=== PATIENT | male | born 1985 | race African-American/Black ===

== ENCOUNTER 2024-02-26 21:06 | Emergency (ER) | payer SELFPAY ==
[2024-02-26 21:11] VITALS: BP 142/88; PULSE 80; RESP 18; TEMP 36.3; O2SAT 100
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
--- NOTE | 2024-02-26 22:15 | CT_ITS ---
EXAM: CT Abdomen And Pelvis W/O Contrast Injection HISTORY: right flank/rib pain TECHNIQUE: Routine protocol CT abdomen and pelvis. IV Contrast: None.. Oral contrast: None. RADIATION DOSAGE (If Supplied By Facility): CTDIvol = ( 24.09 ) mGy, DLP = ( 1459.78 ) mGycm Individualized dose optimization techniques were used for this CT. COMPARISON: None. LIMITATIONS: Lack of IV contrast limits evaluation of solid organs. FINDINGS: LOWER CHEST: Included lung bases are clear. 4 mm nodule left lower lobe LIVER: Grossly unremarkable. GALLBLADDER AND BILIARY TREE: Grossly unremarkable. PANCREAS: Grossly unremarkable. SPLEEN: Grossly unremarkable. ADRENAL GLANDS: Grossly unremarkable. KIDNEYS AND URETERS: No calculi demonstrated. No hydronephrosis. PERITONEUM: No free air. No free fluid. BOWEL: No bowel obstruction. APPENDIX: Visualized and unremarkable. No evidence of acute appendicitis. VESSELS: Abdominal aorta is normal caliber. REPRODUCTIVE ORGANS: Grossly unremarkable URINARY BLADDER: Grossly unremarkable. ABDOMINAL WALL: Unremarkable. BONES: No fracture demonstrated. CT/Abdomen/Pelvis without Cont IMPRESSION: No acute findings on noncontrast CT. Incidental 4 mm pulmonary nodule left lower lobe. Follow-up recommended according to Fleischner Society guidelines: If low risk patient, no follow-up needed; if high-risk patient, i.e. smoking or other risk factors, optional CT chest at 12 months. *Fleischner Society Recommendations (Radiology 2017, [id number].) (Follow-up and management of solitary nodules smaller than 8 mm detected incidentally at non-screening CT. Newly detected indeterminate nodule in persons 35 years of age or older.) Low risk patient: Minimal or absent history of smoking and of other known risk factors. < 6 mm: No followup needed 6-8mm: Initial Follow-up CT at 6-12 months, then consider CT at 18-24 months >8mm: Consider CT at 3 months, FDG PET scan, or biopsy High risk patient: History of smoking or of other known risk factors. < 6 mm: Optional CT at 12 months. 6-8mm: CT at 6-12 months, then CT at 18-24 months. >8mm: Consider CT at 3 months, FDG PET scan, or biopsy Electronically Signed: Mattie Astorga MD at 23:22 EST ,
--- NOTE | 2024-02-26 22:15 | CT_ITS ---
INDICATION: injury EXAMINATION: CT BRAIN - CT Head or Brain W/O Contrast Injection TECHNIQUE: Multiple axial images were obtained of the head without intravenous contrast. The protocol utilizes one or more of the following dose reduction techniques: automated exposure control, adjustment of mA and/or kV according to patient size,and/or use of iterative reconstruction technique. IV Contrast dosage and agent: None. RADIATION DOSAGE (If Supplied By Facility): CTDIvol = ( 44.99 ) mGy, DLP = ( 866.41 ) mGycm COMPARISON: No relevant prior comparison study available FINDINGS: BRAIN: No acute bleed. No edema. Tiwari-white matter differentiation is maintained. VENTRICLES AND SULCI: Not dilated. EXTRA-AXIAL: No hemorrhage, fluid collection, or mass. CALVARIUM / SKULL BASE: Unremarkable. FACE/SINUSES: Unremarkable. SOFT TISSUES: Unremarkable. CT/Brain/Head without Contrast IMPRESSION: No acute abnormality. Electronically Signed: Mattie Astorga MD at 23:07 [facility] ,
[2024-02-26] MEDS: Acetaminophen 500 MG Tablet 1000 MG PO (22:52)
== END 2024-02-26 23:53 | disposition home or self-care (01) ==
LOC: ED 23:52
PROVIDERS: Emergency Provider Emergency Medicine; Visit Provider Emergency Medicine
DX: Z04.1 Encounter for examination and observation following transport accident (principal)
CPT/HCPCS: 70450; 74176; 99282